=== PATIENT | male | born 1975 | race Hispanic/Latino ===

== ENCOUNTER 2019-05-18 10:43 | Emergency (ER) | payer OTHER ==
[~2019-05-18] VITALS: Ht 175.3 cm; Wt 81.1 kg
[2019-05-18] MEDS ORDERED: BUSP10TA PO (11:30)
[2019-05-18] MEDS ORDERED: BUTAL PO (11:30)
[2019-05-18] MEDS ORDERED: LYRI150C PO (11:30)
[2019-05-18] MEDS ORDERED: SING10TA32 PO (11:30)
[2019-05-18] MEDS ORDERED: ZANA4CAP PO (11:30)
[2019-05-18] MEDS ORDERED: TOPI25TA10 PO (11:30)
[2019-05-18] MEDS ORDERED: ZYRTTAB8 PO (11:30)
[2019-05-18] MEDS ORDERED: NS 1,000 ML IV ONE (12:45)
[2019-05-18] MEDS ORDERED: METOCLOPRAMIDE INJ 10MG/2ML VIAL (J2765) IV ONE (12:45)
[2019-05-18 13:20] LABS: BASO % 0.4 % (0.0-1.0); EOS # 0.1 10^3/uL (0.0-0.5); EOS % 1.7 % (0.0-3.0); HEMATOCRIT 49.2 % (42.0-52.0); HEMOGLOBIN 16.2 g/dl (13.5-17.5); LYMPH # 2.1 10^3/uL (1.5-5.0); LYMPH % 30.9 % (24.0-44.0); MEAN CORPUSCULAR HEMOGLOBIN 30.5 pg (27.0-33.0); MEAN CORPUSCULAR HGB CONC 32.9 g/dl (32.0-36.5); MEAN CORPUSCULAR VOLUME 92.5 fl (80.0-96.0); MONO # 0.5 10^3/uL (0.0-0.8); MONO % 7.6 % (0.0-5.0); NEUTROPHILS # 4.1 10^3/uL (1.5-8.5); PLATELET COUNT, AUTOMATED 203 10^3/uL (150-450); RED BLOOD COUNT 5.32 10^6/uL (4.30-6.10); WHITE BLOOD COUNT 6.9 10^3/uL (4.0-10.0)
[2019-05-18 13:34] LABS: INR 1.04; PROTHROMBIN TIME 13.3 SECONDS (11.8-14.0)
[2019-05-18 13:35] LABS: PARTIAL THROMBOPLASTIN TIME 24.9 SECONDS (25.0-38.4)
[2019-05-18 13:40] LABS: ERYTHROCYTE SEDIMENTATION RATE 1 mm/hr (0-15)
--- NOTE | 2019-05-18 14:57 | REP ---
CT BRAIN WITHOUT CONTRAST: CT brain performed without IV contrast. Ventricles are normal in size and position with no midline shift or mass effect. Ding-white differentiation is well maintained. There is mild pneumocephalus, with air in frontal horn of the right lateral ventricle. No acute intracranial hemorrhage or extra-axial fluid collection is seen. Bone window examination is unremarkable. IMPRESSION: Mild pneumocephalus, with mild air seen in the frontal horn of the right lateral ventricle. No acute intracranial hemorrhage or other acute finding. Electronically Signed by Jose Carlos Ding MD 05/18/2019 04:37 P
[2019-05-18] MEDS ORDERED: KETO10TAB PO (18:07)
[2019-05-18] MEDS ORDERED: TYLE650T38 PO (18:07)
[2019-05-18 18:25] VITALS: BP 130/81
== END 2019-05-18 18:27 | disposition home or self-care (01) ==
LOC: M ED 10:43
DX: G97.1 Other reaction to spinal and lumbar puncture (principal); R51 Headache; M54.5 Low back pain
CPT/HCPCS: 70450; 85025; 85610; 85652; 85730; 86140; 96361; 96374; 99284; J2765

== ENCOUNTER → 2019-08-25 | Outpatient (CLI) | payer OTHER ==
[~2019-08-25] MED LIST: BUSP10TA PO; BUTAL PO; KETO10TAB PO; LYRI150C PO; METHACHOLINE KIT (J7674) INH ONE; SING10TA32 PO; TOPI25TA10 PO; TYLE650T38 PO; ZANA4CAP PO; ZYRTTAB8 PO
--- NOTE | 2019-08-25 08:29 | PFTRPT ---
Height: 69.00 Inches Weight: 172.00 Lbs BSA: 1.94 Diagnosis: R05 DATE OF PROCEDURE: 08/25/2019 ORDERED BY: JAY Bueno INTERPRETATION: Study of excellent technical quality. Under protocol, methacholine was administered. At a dose of 2.5 mg or 13.875 CDUs, a 39% decline in the FEV1 was noted. PC of 0.56 is significant. Flow rates did return to baseline post bronchodilator administration. IMPRESSION: Positive methacholine challenge study. MTDD
== END ==
LOC: M CARPUL 08-04 08:41
PROVIDERS: ATTEND Nurse Practitioner Family
DX: R05 Cough (principal)
CPT/HCPCS: 94070; J7674

== ENCOUNTER → 2019-09-14 | Outpatient (CLI) | payer OTHER ==
[~2019-09-14] MED LIST changes: -METHACHOLINE KIT (J7674) INH ONE
--- NOTE | 2019-09-15 03:05 | REP ---
Clinical: Abnormal pulmonary findings. Technique: Axial noncontrast images from the thoracic inlet to the upper abdomen with coronal and sagittal re-formations. Comparison: None. Findings: Intervention Manager and coronal images demonstrate elevation to the left hemidiaphragm. The lung durbin are clear and without consolidation, significant nodule, or mass lesion. No pleural effusion. No pneumothorax. Few scattered small calcified granulomata are identified. No obvious adenopathy. Mediastinum demonstrates normal thoracic aorta, pulmonary vasculature and heart/pericardium. Surrounding musculoskeletal structures are intact. Visualized upper abdomen is unremarkable. Impression: 1. Nonspecific elevation to the left hemidiaphragm. 2. No acute mediastinal or pleuroparenchymal process appreciated. Electronically Signed by Emigdio Dunbar MD 09/15/2019 02:57 A
--- NOTE | 2019-09-15 08:05 | REP ---
Fluoroscopic evaluation of diaphragmatic excursion: "Sniff test" Diaphragmatic excursion is observed fluoroscopically. Cine radiography is performed. Left hemidiaphragm: The left hemidiaphragm is elevated. At and inspiration the dome of the left hemidiaphragm is at the inferior margin of the posterior arch of one left rib. At end expiration the dome of the left hemidiaphragm is at the superior margin of the posterior arch of the next most superior rib. Right hemidiaphragm: At end inspiration the dome of the right hemidiaphragm is at a mid intercostal space. At end expiration the dome of the right hemidiaphragm is at the superior margin of the of the posterior arch two ribs above the the end inspiration mid intercostal space. Fluoroscopic exposure time is 1.1 minutes. Electronically Signed by Jose Carlos Munoz MD 09/15/2019 07:58 A
== END ==
LOC: M RAD 14:11
PROVIDERS: ATTEND Nurse Practitioner Family
DX: R91.8 Other nonspecific abnormal finding of lung field (principal)

== ENCOUNTER → 2021-02-03 | Outpatient (CLI) | payer OTHER ==
--- NOTE | 2021-02-03 10:21 | REP ---
INDICATION: MODERATE PERSISTENT ASTHMA, UNCOMPLICATED COMPARISON: 07/10/2019 TECHNIQUE: PA and lateral. FINDINGS: The mediastinum and cardiac silhouette are normal. The lung durbin are clear and without acute consolidation, effusion, or pneumothorax. Elevation to the left hemidiaphragm is again noted and unchanged. The skeletal structures are intact and normal. IMPRESSION: No acute cardiopulmonary process. Chronic elevation to the left hemidiaphragm unchanged. <Electronically signed by Emigdio Dunbar > 02/03/21 [id number]
== END ==
LOC: M RAD 09:54
PROVIDERS: ATTEND Nurse Practitioner Family
DX: J45.40 Moderate persistent asthma, uncomplicated (principal)

== ENCOUNTER → 2021-06-07 | Outpatient (REF) ==
--- NOTE | 2021-06-08 05:40 | REP ---
INDICATION: PAIN NECK AND BACL COMPARISON: None. TECHNIQUE: AP, lateral, swimmer's and open-mouth views. FINDINGS: Alignment and lordosis is maintained. Mild to moderate degenerative changes include endplate sclerosis with minimal disc space narrowing and very subtle early marginal spurring primarily involving C3-4 through C5-6. No acute fracture/compression injury or subluxation. Open mouth view demonstrates normal C1-C2 articulation and odontoid process.. IMPRESSION: [id number] degenerative spondylosis. <Electronically signed by Emigdio Dunbar > 06/08/21 [id number]
== END ==
LOC: M PLAIMG 14:01
PROVIDERS: ATTEND Internal Medicine
DX: M47.892 Other spondylosis, cervical region (principal); M25.78 Osteophyte, vertebrae